=== PATIENT | female | born 1985 | race Caucasian/White ===

== ENCOUNTER → 2017-01-18 | Outpatient (CLI) | payer BC ==
[~2017-01-18] MED LIST: PRENTAB26 PO
== END | disposition home or self-care (01) ==
LOC: C.PAPS 10:13
PROVIDERS: ATTEND Obstetrics & Gynecology
DX: Z01.419 Encounter for gynecological examination (general) (routine) without abnormal findings (principal)

== ENCOUNTER 2021-02-09 10:37 | Inpatient (IN) ==
[2021-02-09 11:58] LABS: Basophils # (auto) 0.04 K/uL (0-0.2); Basophils % (auto) 1.1 %; Hemoglobin 12.1 g/dL (12.0-16.0); Immature Granulocytes # (auto) 0.03 K/uL (0.00-0.02); Immature Granulocytes % (auto) 0.8 %; Lymphocytes # (auto) 0.62 K/uL (1.2-3.4); Lymphocytes % (auto) 16.8 %; Mean Corpuscular Hemoglobin 30.3 pg (25-34); Mean Corpuscular Hgb Conc 33.6 g/dL (32-36); Mean Corpuscular Volume 90.2 fL (80-100); Mean Platelet Volume 9.4 fL (7.4-10.4); Monocytes # (auto) 0.51 K/uL (0.11-0.59); Monocytes % (auto) 13.9 %; Neutrophils # (auto) 2.48 K/uL (1.4-6.5); Neutrophils % (auto) 67.4 %; Platelet Count 213 K/uL (130-400); RDW Coefficient of Variation 12.6 % (11.5-14.5); RDW Standard Deviation 42.1 fL (36.4-46.3); Red Blood Count 3.99 M/uL (4.2-5.4); White Blood Count 3.68 K/uL (4.8-10.8)
[2021-02-09 12:18] LABS: Partial Thromboplastin Ratio 0.9; Partial Thromboplastin Time 23.9 Seconds (21.0-31.0)
[2021-02-09 12:25] LABS: D Dimer 1660 ug/L FEU (0-500)
[2021-02-09] MEDS ORDERED: OPTIRAY 320 125ml IV ONE (12:28)
--- NOTE | 2021-02-09 12:29 | XRay Report ---
XR chest 1V portable HISTORY: Atypical Chest Pain COMPARISON: None. FINDINGS: Multifocal bilateral airspace opacities consistent with a viral pneumonia. This is most pro nounced within the mid to lower lung zones. No pneumothorax. The heart is mildly enlarged. There are low lung volumes with mild elevation the right hemidiaphragm. IMPRESSION: Multifocal bilateral airspace opacities consistent with a viral pneumonia. ACT 112: Negative or not required by law. Electronically signed by: Ariel Shaikh M.D. 02/09/2021 12:27 PM
[2021-02-09 12:36] LABS: Alanine Aminotransferase 37 U/L (12-78); Albumin Level 2.6 gm/dl (3.4-5.0); Aspartate Aminotransferase 52 U/L (15-37); BUN Creatinine Ratio 12.9 (10-20); Blood Urea Nitrogen 9 mg/dl (7-18); Carbon Dioxide 27 mmol/L (21-32); Chloride 103 mmol/L (98-107); Creatinine Clr Calc Pharmacy 109.3 ml/min; Est GFR (African American) 130.8 ml/min; Est GFR (Non-African American) 112.9 ml/min; Glucose 91 mg/dl (70-99); Lipase 477 U/L (73-393); Sodium 139 mmol/L (136-145)
[2021-02-09 12:41] LABS: Albumin Globulin Ratio 0.5 (0.9-2); Alkaline Phosphatase 35 U/L (45-117); Bilirubin,Total 0.4 mg/dl (0.2-1); Globulin 5.1 gm/dl (2.5-4.0); Total Protein 7.7 gm/dl (6.4-8.2); Troponin I < 0.015 ng/ml (0-0.045)
--- NOTE | 2021-02-09 12:55 | CT Scan Report ---
CHEST CTA for PULMONARY ARTERIES CT DOSE: 265.20 mGy.cm HISTORY: Shortness of breath. TECHNIQUE: Multiaxial CT images of the chest were performed following the intravenous administration of contrast to evaluate the pulmonary arteries. Maximal intensity projection images were also obtaine d. A dose lowering technique was utilized adhering to the principles of ALARA. COMPARISON STUDY: None. FINDINGS: Limited views of the upper abdomen demonstrate a normal liver, spleen, and adrenal glands. Normal esophagus. The thyroid gland enhances normally. Mild mediastinal and bilateral hilar lymphaden opathy. This is likely reactive. No pleural or pericardial effusions. The heart is normal in size. No rmal caliber thoracic aorta with no evidence for dissection. No definite filling defects within the p ulmonary arteries to suggest a pulmonary embolus. Heterogeneous opacification of a few the left lower lobe segmental/subsegmental pulmonary arteries is likely due to the motion artifact. No fractures wi thin the visualized osseous structures. The central airways are patent. No pneumothorax. Multifocal g roundglass and consolidative airspace opacities most pronounced within the mid to lower lung zones co nsistent with a viral pneumonia. IMPRESSION: 1. No evidence for pulmonary embolus. 2. Moderate multifocal pneumonia likely secondary to a viral process. ACT 112: Negative or not required by law. Electronically signed by: Ariel Shaikh M.D. 02/09/2021 12:54 PM
[2021-02-09] MEDS ORDERED: dexAMETHasone**PF** 10 MG/ML VIAL IV ONE (14:07)
--- NOTE | 2021-02-09 15:12 | Emergency Department Note ---
Impression & Plan Pneumonia due to 2019 novel coronavirus, Hypoxia, Cough, Shortness of breath ED Provider Note NAME: ALVINA FORRESTER AGE: 35 SEX: F : 1985 ARRIVES VIA: Ambulance INFORMANT: Patient ED PROVIDER(S): Oni Cotter DO CHIEF COMPLAINT: Shortness of breath HPI: Patient is a 35-year-old female who presents ER for shortness of breath. Her symptoms initially started about 7 to 8 days ago. She admits to initially chills, cough shortness of breath. She did have loss of taste and smell but that has improved. The shortness of breath has been worsening significantly over the past 24 hours. Denies any belly pain nausea vomiting or diarrhea. No dysuria urgency or frequency. No other exacerbating or remitting factors. She has been followed up and is currently using an albuterol with no significant improvement. She is not vaccinated. ROS: See above HPI for pertinent positives & negatives. A total of 10 systems reviewed and were otherwise negative. PAST MEDICAL HISTORY:See Below PAST SURGICAL HISTORY:See Below FAMILY HISTORY:See Below SOCIAL HISTORY:See Below HOME MEDICATIONS:See Below ALLERGIES:See Below VITALS:See Below PHYSICAL EXAMINATION: GENERAL: Sitting up in bed, alert, slightly ill-appearing, disheveled, persistent cough EYE EXAM: normal conjunctiva. PERRL and EOM's grossly intact. OROPHARYNX: no exudate, no erythema, lips, buccal mucosa, and tongue normal and mucous membranes are dry NECK: supple, no nuchal rigidity, no adenopathy, non-tender LUNGS: Clear to auscultation. Normal chest wall mechanics HEART: no murmurs, S1 normal and S2 normal ABDOMEN: abdomen soft, non-tender, normo-active bowel sounds, no masses, no rebound or guarding. UPPER EXTREMITIES: upper extremities are grossly normal. LOWER EXTREMITIES: No pitting edema. Calves are equal bilateral NEURO EXAM: Normal sensorium, cranial nerves II-XII grossly intact, normal speech, no gross weakness of arms, no gross weakness of legs. MEDICAL DECISION MAKING: Patient is a 35-year-old female who is Covid positive the presents the ER for above-stated complaint. IV was established blood work obtained. Labs show mild leukopenia at 3.6 thousand. No significant anemia. D-dimer was elevated at 1600. BMP along with LFTs bilirubin troponin was unremarkable. Lipase slightly elevated at 470. Pro-Checo normal. Chest x-ray with bilateral infiltrates. CT angio of the chest shows no PEs was performed secondary to the elevated dimer. Patient was given IV Decadron. She was updated bedside. She ambulated and dropped her pulse ox to 85%. Discussed with Dr. Raj Heaton for further evaluation. Triage Nursing notes reviewed. Limited review of prior medical records performed Vital Signs: reviewed and remarkable for hypoxia Differential diagnosis: Differential diagnoses includes but is not limited to pneumonia, bronchitis, COPD/Asthma exacerbation, pneumothorax, pulmonary embolism, congestive heart failure, acute coronary syndrome ER treatment provided: See below Diagnostics interpreted by me: ECG: Sinus rhythm rate of 65 Normal axis T wave inversions in the inferior leads with ST depressions QTC 440 Cardiac Monitoring: An order was placed for continuous cardiac monitoring. The monitor shows a rate of 62 with sinus rhythm. Laboratory studies: As stated above and show below. Imaging studies: Portable AP upright 1 view of the chest shows bilateral infiltrates CT angio chest shows no PEs but multiple bilateral infiltrates Consultation(s): D/w Dr. Raj Heaton for further evaluation Procedures: none Critical Care: None Past Med/Surg History Surgical History History of tonsillectomy History of wisdom tooth extraction Family History Grandfather (Maternal) Lymphoma Denies family history of Ovarian cancer Breast cancer Colorectal cancer Social History Smoking Status: Never smoker Hx Alcohol Use: Yes Hx Substance Use: No Feels Safe at Home: Yes Allergies Allergies Allergy/AdvReac Type Severity Reaction Status Date / Time naproxen Allergy Unknown Verified 02/09/21 14:34 Home Meds Home Medications Medication Instructions Recorded Confirmed albuterol sulfate 90 mcg/actuation 1 - 2 puff INHALATION Q4H PRN 02/09/21 02/09/21 aerosol inhaler (Ventolin HFA) dextromethorphan-guaifenesin ER 60 1 tab PO Q12H 02/09/21 02/09/21 mg-1,200 mg tab,extend release,12hr (Mucinex DM) Results & Data (ED) Vital Signs Vital Signs - 24 hr 10/03/21 11:00 02/09/21 11:03 02/09/21 11:30 Temperature 37.3 C Temperature Source Oral Pulse Rate 63 67 66 Pulse Rate from SpO2 Sensor 64 67 Pulse Rhythm Regular Pulse Strength Normal Respiratory Rate 28 H 20 20 Respiratory Effort / Characteristics Non-Labored Respiratory Depth Normal Respiratory Pattern Regular Blood Pressure 114/78 114/78 123/87 Blood Pressure Mean 90 90 99 Blood Pressure Position Lying Pulse Oximetry 98 96 94 Oxygen Delivery Method Nasal Cannula Oxygen Flow Rate 2 Sepsis Recent Fever Within 48 Hours Yes Sepsis New/Unexplained Change in Mental Status No Sepsis Action Taken by Nursing No Action Required 02/09/21 12:02 02/09/21 12:10 02/09/21 12:20 Temperature Temperature Source Pulse Rate 61 61 68 Pulse Rate from SpO2 Sensor 61 62 68 Pulse Rhythm Pulse Strength Respiratory Rate 27 H 29 H Respiratory Effort / Characteristics Respiratory Depth Respiratory Pattern Blood Pressure Blood Pressure Mean Blood Pressure Position Pulse Oximetry 94 94 94 Oxygen Delivery Method Oxygen Flow Rate Sepsis Recent Fever Within 48 Hours Sepsis New/Unexplained Change in Mental Status Sepsis Action Taken by Nursing 02/09/21 12:30 02/09/21 12:50 02/09/21 13:00 Temperature Temperature Source Pulse Rate 66 67 62 Pulse Rate from SpO2 Sensor 67 66 62 Pulse Rhythm Pulse Strength Respiratory Rate 26 H 24 28 H Respiratory Effort / Characteristics Respiratory Depth Respiratory Pattern Blood Pressure 131/91 Blood Pressure Mean 104 Blood Pressure Position Pulse Oximetry 94 95 95 Oxygen Delivery Method Oxygen Flow Rate Sepsis Recent Fever Within 48 Hours Sepsis New/Unexplained Change in Mental Status Sepsis Action Taken by Nursing 02/09/21 13:10 02/09/21 13:20 02/09/21 13:30 Temperature Temperature Source Pulse Rate 60 59 L 59 L Pulse Rate from SpO2 Sensor 59 L 60 58 L Pulse Rhythm Pulse Strength Respiratory Rate 24 24 25 H Respiratory Effort / Characteristics Respiratory Depth Respiratory Pattern Blood Pressure Blood Pressure Mean Blood Pressure Position Pulse Oximetry 96 95 95 Oxygen Delivery Method Oxygen Flow Rate Sepsis Recent Fever Within 48 Hours Sepsis New/Unexplained Change in Mental Status Sepsis Action Taken by Nursing 02/09/21 13:40 02/09/21 13:49 02/09/21 13:50 Temperature Temperature Source Pulse Rate 56 L 67 Pulse Rate from SpO2 Sensor 56 L 68 Pulse Rhythm Pulse Strength Respiratory Rate 26 H 29 H Respiratory Effort / Characteristics Respiratory Depth Respiratory Pattern Blood Pressure Blood Pressure Mean Blood Pressure Position Pulse Oximetry 94 85 L 92 Oxygen Delivery Method Room Air Oxygen Flow Rate Sepsis Recent Fever Within 48 Hours Sepsis New/Unexplained Change in Mental Status Sepsis Action Taken by Nursing 02/09/21 14:00 02/09/21 14:10 Temperature Temperature Source Pulse Rate 62 66 Pulse Rate from SpO2 Sensor 65 66 Pulse Rhythm Pulse Strength Respiratory Rate 31 H 31 H Respiratory Effort / Characteristics Respiratory Depth Respiratory Pattern Blood Pressure Blood Pressure Mean Blood Pressure Position Pulse Oximetry 96 95 Oxygen Delivery Method Oxygen Flow Rate Sepsis Recent Fever Within 48 Hours Sepsis New/Unexplained Change in Mental Status Sepsis Action Taken by Nursing Laboratory Data Result diagrams: 02/09/21 11:50 02/09/21 11:50 Lab Results 02/09/21 02/09/21 02/09/21 Range/Units 11:50 11:50 11:50 WBC 3.68 L (4.8-10.8) K/uL RBC 3.99 L (4.2-5.4) M/uL Hgb 12.1 (12.0-16.0) g/dL Hct 36.0 L (37-47) % MCV 90.2 (80-100) fL MCH 30.3 (25-34) pg MCHC 33.6 (32-36) g/dL RDW Std Deviation 42.1 (36.4-46.3) fL RDW Coeff of Amie 12.6 (11.5-14.5) % Plt Count 213 (130-400) K/uL MPV 9.4 (7.4-10.4) fL Immature Gran % (Auto) 0.8 % Neut % (Auto) 67.4 % Lymph % (Auto) 16.8 % [place] % (Auto) 13.9 % Eos % (Auto) 0.0 % Baso % (Auto) 1.1 % Neut # (Auto) 2.48 (1.4-6.5) K/uL Lymph # (Auto) 0.62 L (1.2-3.4) K/uL [place] # (Auto) 0.51 (0.11-0.59) K/uL Eos # (Auto) 0.00 (0-0.5) K/uL Baso # (Auto) 0.04 (0-0.2) K/uL Immature Gran # (Auto) 0.03 H (0.00-0.02) K/uL APTT 23.9 (21.0-31.0) Seconds PTT Ratio 0.9 D-Dimer 1660 H* (0-500) ug/L FEU Sodium 139 (136-145) mmol/L Potassium 4.0 (3.5-5.1) mmol/L Chloride 103 (98-107) mmol/L Carbon Dioxide 27 (21-32) mmol/L Anion Gap 9.0 (3-11) BUN 9 (7-18) mg/dl Creatinine 0.66 (0.6-1.2) mg/dl Est Cr Clr Drug Dosing 109.3 ml/min Est GFR ( Amer) 130.8 ml/min Est GFR (Non-Af Amer) 112.9 ml/min BUN/Creatinine Ratio 12.9 (10-20) Glucose 91 (70-99) mg/dl Calcium 9.0 (8.5-10.1) mg/dl Total Bilirubin 0.4 (0.2-1) mg/dl AST 52 H (15-37) U/L ALT 37 (12-78) U/L Alkaline Phosphatase 35 L (45-117) U/L Troponin I < 0.015 (0-0.045) ng/ml C-Reactive Protein (0-0.29) mg/dl Total Protein 7.7 (6.4-8.2) gm/dl Albumin 2.6 L (3.4-5.0) gm/dl Globulin 5.1 H (2.5-4.0) gm/dl Albumin/Globulin Ratio 0.5 L (0.9-2) Lipase 477 H (73-393) U/L Procalcitonin (0-0.5) ng/ml 02/09/21 02/09/21 Range/Units 11:50 11:50 WBC (4.8-10.8) K/uL RBC (4.2-5.4) M/uL Hgb (12.0-16.0) g/dL Hct (37-47) % MCV (80-100) fL MCH (25-34) pg MCHC (32-36) g/dL RDW Std Deviation (36.4-46.3) fL RDW Coeff of Amie (11.5-14.5) % Plt Count (130-400) K/uL MPV (7.4-10.4) fL Immature Gran % (Auto) % Neut % (Auto) % Lymph % (Auto) % [place] % (Auto) % Eos % (Auto) % Baso % (Auto) % Neut # (Auto) (1.4-6.5) K/uL Lymph # (Auto) (1.2-3.4) K/uL [place] # (Auto) (0.11-0.59) K/uL Eos # (Auto) (0-0.5) K/uL Baso # (Auto) (0-0.2) K/uL Immature Gran # (Auto) (0.00-0.02) K/uL APTT (21.0-31.0) Seconds PTT Ratio D-Dimer (0-500) ug/L FEU Sodium (136-145) mmol/L Potassium (3.5-5.1) mmol/L Chloride (98-107) mmol/L Carbon Dioxide (21-32) mmol/L Anion Gap (3-11) BUN (7-18) mg/dl Creatinine (0.6-1.2) mg/dl Est Cr Clr Drug Dosing ml/min Est GFR ( Amer) ml/min Est GFR (Non-Af Amer) ml/min BUN/Creatinine Ratio (10-20) Glucose (70-99) mg/dl Calcium (8.5-10.1) mg/dl Total Bilirubin (0.2-1) mg/dl AST (15-37) U/L ALT (12-78) U/L Alkaline Phosphatase (45-117) U/L Troponin I (0-0.045) ng/ml C-Reactive Protein 10.20 H (0-0.29) mg/dl Total Protein (6.4-8.2) gm/dl Albumin (3.4-5.0) gm/dl Globulin (2.5-4.0) gm/dl Albumin/Globulin Ratio (0.9-2) Lipase (73-393) U/L Procalcitonin < 0.05 (0-0.5) ng/ml Administered Medications Discontinued Medications Dexamethasone Sodium Phosphate (DexamethasonePf 10 Mg/Ml Vial) 8 mg IV NOW ONE Stop: 02/09/21 14:08 Last Admin: 02/09/21 14:32 Dose: 8 mg Documented by: [id number] Ioversol (Optiray 320 125ml) 118 ml IV ONCE ONE Stop: 02/09/21 12:29 Last Admin: 02/09/21 12:29 Dose: 118 ml Documented by: [id number] Imaging Data Radiologist's Impression: Chest X-Ray 02/09/21 11:14 XR chest 1V portable HISTORY: Atypical Chest Pain COMPARISON: None. FINDINGS: Multifocal bilateral airspace opacities consistent with a viral pneumonia. This is most pronounced within the mid to lower lung zones. No pneumothorax. The heart is mildly enlarged. There are low lung volumes with mild elevation the right hemidiaphragm. IMPRESSION: Multifocal bilateral airspace opacities consistent with a viral pneumonia. ACT 112: Negative or not required by law. Electronically signed by: Ariel Shaikh M.D. 02/09/2021 12:27 PM Chest CTA 02/09/21 12:25 CHEST CTA for PULMONARY ARTERIES CT DOSE: 265.20 mGy.cm HISTORY: Shortness of breath. TECHNIQUE: Multiaxial CT images of the chest were performed following the intravenous administration of contrast to evaluate the pulmonary arteries. Maximal intensity projection images were also obtained. A dose lowering technique was utilized adhering to the principles of ALARA. COMPARISON STUDY: None. FINDINGS: Limited views of the upper abdomen demonstrate a normal liver, spleen, and adrenal glands. Normal esophagus. The thyroid gland enhances normally. Mild mediastinal and bilateral hilar lymphadenopathy. This is likely reactive. No pleural or pericardial effusions. The heart is normal in size. Normal caliber thoracic aorta with no evidence for dissection. No definite filling defects within the pulmonary arteries to suggest a pulmonary embolus. Heterogeneous opacification of a few the left lower lobe segmental/subsegmental pulmonary arteries is likely due to the motion artifact. No fractures within the visualized osseous structures. The central airways are patent. No pneumothorax. Multifocal groundglass and consolidative airspace opacities most pronounced within the mid to lower lung zones consistent with a viral pneumonia. IMPRESSION: 1. No evidence for pulmonary embolus. 2. Moderate multifocal pneumonia likely secondary to a viral process. ACT 112: Negative or not required by law. Electronically signed by: Ariel Shaikh M.D. 02/09/2021 12:54 PM Discharge Plan Visit Data Chief Complaint: Illness Stated Complaint: SOB, COVID + ED Provider: Oni Cotter Discharge Problem: Pneumonia due to 2019 novel coronavirus, Hypoxia, Cough, Shortness of breath Forms Stand Alone Forms: My [facility] Prescriptions Prescriptions: No Action dextromethorphan-guaifenesin [Mucinex DM] 60-1,200 mg Tablet Extended Release 12 Hr 1 tab PO Q12H RF: 0 albuterol sulfate [Ventolin HFA] 90 mcg/actuation HFA aerosol inhaler 1 - 2 puff INHALATION Q4H PRN (Reason: Cough) RF: 0 Referrals Referrals: Fela Pace DO [Primary Care Provider] -
--- NOTE | 2021-02-09 15:38 | History & Physical Report ---
Date of Service February 09, 2021 Assessment & Plan (1) Pneumonia due to 2019 novel coronavirus: Plan: Dexamethasone 6mg IV daily Day 13 of illness therefore remdesivir deferred Lovenox 40mg SQ BID Encourage proning Aim O2 sats > 94% (2) Hypoxia: Plan: Borderline at rest. Mainly on minimal exertion. Will probably need 2 step prior to discharge. Plan: VTE Prophylaxis - Lovenox 40mg SQ BID Diet - Regular Disposition - admit to med/surg, COVID cash Admission and Anticipated Discharge Date Admission Date: February 09, 2021 History of Present Illness Chief Complaint: COVID-19 symptoms Primary Care Provider: Fela Pace DO Dilcia Pantoja is a 35 year old female who presents to the ER with shortness of breath. Symptoms started on January 28, on day 13 on admission. She is not vaccinated, was planning to get one soon. Symptoms started with fever and chills. Loss of taste and smell has been coming back. Now with fatigue, shortness of breath on exertion, non-productive cough, chest pain on coughing and reduced appetite. She denies any abdominal pain, nausea diarrhea. Not recevied any treatment prior to today. In the ER CXR was consistent with multifocal pneumonia. SARS-COV-2 PCR positive. She was given 6mg IV dexamethasone in the ER due to borderline hypoxia at rest but significantly desaturated to 85% on minimal exertion. She was referred to medicine for admission and ongoing management of COVID-19 and hypoxia. Allergies Allergy/AdvReac Type Severity Reaction Status Date / Time naproxen Allergy Unknown Verified 02/09/21 14:34 Home Medications Medication Instructions Recorded Confirmed Type albuterol sulfate 90 mcg/actuation 1 - 2 puff INHALATION Q4H PRN 02/09/21 02/09/21 History aerosol inhaler (Ventolin HFA) dextromethorphan-guaifenesin ER 60 1 tab PO Q12H 02/09/21 02/09/21 History mg-1,200 mg tab,extend release,12hr (Mucinex DM) Past Med/Surg History Surgical History History of tonsillectomy History of wisdom tooth extraction Family History Grandfather (Maternal) Lymphoma Denies family history of Ovarian cancer Breast cancer Colorectal cancer Social History Smoking Status: Never smoker Second Hand Exposure: No; Do You Dip or Chew Tobacco: No; Tobacco Cessation Education Requested by Patient: No Hx Alcohol Use: Yes Alcohol type: wine Hx Substance Use: No Preferred Language: Chinese Communication Ability: Effective Occupational Therapist Assistant Required: No Beliefs That Will Affect Care: None Current Living Situation: Family Other Information That Helps Us Care for You: No Feels Safe at Home: Yes Safety Concerns: Feels Safe At This Time Assistive Devices: Contacts and Glasses Review of Systems Review of Systems: All systems reviewed & are unremarkable except as noted in HPI & below Physical Exam Constitutional: WD/WN, vitals as above Eyes: + anicteric sclerae; normal pupil size ENMT: external ear and nose normal, oropharynx normal Neck: trachea midline, no thyromegaly Respiratory: normal respiratory effort; no respiratory distress Auscultation: + diminished lung sounds (poor inspiratory effort due to coughing) and + crackles (thourghout); no wheezes Cardiovascular: RRR, no murmur, no edema Gastrointestinal (Abdomen): normal bowel sounds, soft, nontender, no hepatosplenomegaly Musculoskeletal: no cyanosis or clubbing, extremities motor strength 5/5 Skin: no rashes, warm and dry Neurologic: moves all extremities and awake; not confused Psychiatric: A+Ox3, euthymic affect Results & Data Results & Data ([facility]) Vital Signs (Past 12 Hours) Vital Signs Temp Pulse Resp BP Pulse Ox 02/09/21 14:10 66 31 H 95 02/09/21 14:00 62 31 H 96 02/09/21 13:50 67 29 H 92 02/09/21 13:49 85 L 02/09/21 13:40 56 L 26 H 94 02/09/21 13:30 59 L 25 H 95 02/09/21 13:20 59 L 24 95 02/09/21 13:10 60 24 96 02/09/21 13:00 62 28 H 131/91 95 02/09/21 12:50 67 24 95 02/09/21 12:30 66 26 H 94 02/09/21 12:20 68 29 H 94 02/09/21 12:10 61 27 H 94 02/09/21 12:02 61 94 02/09/21 11:30 66 20 123/87 94 02/09/21 11:03 37.3 C 67 20 114/78 96 02/09/21 11:00 63 28 H 114/78 98 Diagnostic Findings XR chest 1V portable HISTORY: Atypical Chest Pain COMPARISON: None. FINDINGS: Multifocal bilateral airspace opacities consistent with a viral pneumonia. This is most pronounced within the mid to lower lung zones. No pneumothorax. The heart is mildly enlarged. There are low lung volumes with mild elevation the right hemidiaphragm. IMPRESSION: Multifocal bilateral airspace opacities consistent with a viral pneumonia. CHEST CTA for PULMONARY ARTERIES CT DOSE: 265.20 mGy.cm HISTORY: Shortness of breath. TECHNIQUE: Multiaxial CT images of the chest were performed following the intravenous administration of contrast to evaluate the pulmonary arteries. Maximal intensity projection images were also obtained. A dose lowering technique was utilized adhering to the principles of ALARA. COMPARISON STUDY: None. FINDINGS: Limited views of the upper abdomen demonstrate a normal liver, spleen, and adrenal glands. Normal esophagus. The thyroid gland enhances normally. Mild mediastinal and bilateral hilar lymphadenopathy. This is likely reactive. No pl eural or pericardial effusions. The heart is normal in size. Normal caliber thoracic aorta with no evidence for dissection. No definite filling defects within the pulmonary arteries to suggest a pulmonary embolus. Heterogeneous opacification of a few the left lower lobe segmental/subsegmental pulmonary arteries is likely due to the motion artifact. No fractures within the visualized osseous structures. The central airways are patent. No pneumothorax. Multifocal groundglass and consolidative airspace opacities most pronounced within the mid to lower lung zones consistent with a viral pneumonia. IMPRESSION: 1. No evidence for pulmonary embolus. 2. Moderate multifocal pneumonia likely secondary to a viral process. Medications Administered ER Medications Given: Dexamethasone 8mg IV ECG Indication: SOB/dyspnea Rate (beats per minute): 65 Rhythm: normal sinus Findings: + other (Non specific T wave abnormality) Comparison ECG Date: no prior available Code Status & VTE Plan Code Status Full VTE Prophylaxis Plan VTE Prophylaxis will be ordered: Yes PG Care Time/CCT Total # of Minutes Spent Total Time Spent with Patient: Total time spent is greater than 50% in coordination of care (as documented) at patient's floor/unit and/or counseling patient: Coding Level of Care Code 53136 Initial Inpt Care Lvl 2 Diagnoses Pneumonia due to 2019 novel coronavirus U07.1; J12.82 Hypoxia R09.02
[2021-02-09] MEDS ORDERED: ACETAMINOPHEN 325 MG TAB PO PRN (19:50)
[2021-02-09] MEDS ORDERED: POLYETHYLENE (MIRALAX) 17 GM PACK PO PRN (19:50)
--- NOTE | 2021-02-09 20:01 | Electrocardiogram Report ---
Test Reason : Blood Pressure : / mmHG Vent. Rate : 065 BPM Atrial Rate : 065 BPM P-R Int : 166 ms QRS Dur : 086 ms QT Int : 424 ms P-R-T Axes : 030 -02 -12 degrees QTc Int : 440 ms Normal sinus rhythm Nonspecific T wave abnormality Abnormal ECG No previous ECGs available Confirmed by Cassius Lopez ([id number]) on 02/09/2021 8:01:30 PM Referred By: REFERRED SELF Confirmed By:Cassius Lopez
[2021-02-09] MEDS ORDERED: DEXTROMETHORPHAN POLYMR COMPLX 30 MG/5 ML UDP PO PRN (20:40)
[2021-02-09] MEDS ORDERED: ENOXAPARIN INJ 40 MG/0.4 ML SYR SQ SCH (21:00)
[2021-02-09] MEDS: guaiFENesin 600 MG TABCR PO SCH (21:55)
[2021-02-09] MEDS: ENOXAPARIN INJ 40 MG/0.4 ML SYR SQ SCH (21:55)
[2021-02-10 06:50] LABS: Hematocrit (blood only) 36.5 % (37-47); Hemoglobin 12.4 g/dL (12.0-16.0); Mean Corpuscular Hemoglobin 30.3 pg (25-34); Mean Corpuscular Volume 89.2 fL (80-100); Platelet Count 268 K/uL (130-400); RDW Coefficient of Variation 12.6 % (11.5-14.5); RDW Standard Deviation 41.1 fL (36.4-46.3); Red Blood Count 4.09 M/uL (4.2-5.4); White Blood Count 2.29 K/uL (4.8-10.8)
[2021-02-10 07:11] LABS: Basophils # (auto) 0.03 K/uL (0-0.2); Basophils % (auto) 1.3 %; Immature Granulocytes # (auto) 0.03 K/uL (0.00-0.02); Immature Granulocytes % (auto) 1.3 %; Lymphocytes # (auto) 0.63 K/uL (1.2-3.4); Lymphocytes % (auto) 27.5 %; Monocytes # (auto) 0.28 K/uL (0.11-0.59); Monocytes % (auto) 12.2 %; Neutrophils # (auto) 1.32 K/uL (1.4-6.5); Neutrophils % (auto) 57.7 %; Platelet Estimate CAC (Normal)
[2021-02-10 07:13] LABS: Albumin Level 2.5 gm/dl (3.4-5.0); BUN Creatinine Ratio 27.3 (10-20); C Reactive Protein 8.71 mg/dl (0-0.29); Calcium 9.3 mg/dl (8.5-10.1); Creatinine Clr Calc Pharmacy 132.8 ml/min; Est GFR (African American) 140.6 ml/min; Est GFR (Non-African American) 121.3 ml/min; Potassium 4.2 mmol/L (3.5-5.1)
[2021-02-10 07:16] LABS: Albumin Globulin Ratio 0.5 (0.9-2); Bilirubin,Total 0.4 mg/dl (0.2-1); Globulin 5.3 gm/dl (2.5-4.0); Total Protein 7.8 gm/dl (6.4-8.2)
[2021-02-10] MEDS: ENOXAPARIN INJ 40 MG/0.4 ML SYR SQ SCH ×2 (10:35→22:01)
[2021-02-10] MEDS: guaiFENesin 600 MG TABCR PO SCH ×2 (10:35→22:00)
[2021-02-10] MEDS: dexAMETHasone 6 MG in SYRINGE 0 ML IV SCH (10:38)
--- NOTE | 2021-02-10 22:53 | Hospitalist Progress Note ---
Date of Service February 10, 2021 Assessment & Plan (1) Pneumonia due to 2019 novel coronavirus: Plan: Thus far stable although she does have hypoxia with walking. has extensive pneumonia on CT scan and diffuse rales on examination. she is about 2 weeks into her illness. inflammatory markers are high - I am hopeful, however, that she does not worsen. day #2 of dexamethasone - continue for up to 10 days. proning discussed, handout given. incentive yonis. flutter valve. lovenox 40 BID for DVT proph. mucinex. melatonin to help w/ sleep. watch overnight due to potential for worsening and hypoxia w/ ambulation. (2) Hypoxia: Plan: see above if she d/c home tomorrow willl need formal 2-step Plan: VTE Prophylaxis - Lovenox 40mg SQ BID leukopenia - bone marrow suppression from COVID-19 repeat cbc am updated pt's extensively by phone this evening Admission and Anticipated Discharge Date Admission Date: February 09, 2021 Subjective patient states she "feels much better" relative to yesterday still w/ cough and MÁRQUEZ but no dyspnea at rest mild chest tightness - central - with coughing eating better no fevers we discussed proning - she had not done so simply because no one had talked to her about it, but she will try using incentive yonis Review of Systems Review of Systems: gen - no fevers/chills; +fatigue CV - no palpitations, no orthopnea pulm - no hemoptysis or dyspnea at rest GI - no nausea/emesis/abd pain Physical Exam Physical Exam: gen - nontoxic, NAD, no increased work of breathing; I walked her in the room - o2 sats dropped to <88% in room air w/ such mouth - MMM neck - no JVD heart - RRR, s1 s2 lungs - diffuse dry rales b/l, extending 1/2 way up back; also heard dry rales anteriorly abd - soft NT ND BS+; no HSM ext - no edema psych - a/o x 3 Results & Data Results & Data ([facility]) Vital Signs (Past 12 Hours) Vital Signs Temp Pulse Resp BP BP Pulse Ox 02/10/21 22:08 36.5 C 52 L 20 114/78 94 02/10/21 15:58 36.6 C 66 16 108/70 93 Laboratory Results Laboratory Results - last 24 hr 02/10/21 02/10/21 06:17 06:17 WBC 2.29 L RBC 4.09 L Hgb 12.4 Hct 36.5 L MCV 89.2 MCH 30.3 MCHC 34.0 RDW Std Deviation 41.1 RDW Coeff of Amie 12.6 Plt Count 268 MPV 10.0 Immature Gran % (Auto) 1.3 Neut % (Auto) 57.7 Lymph % (Auto) 27.5 Sanborn % (Auto) 12.2 Eos % (Auto) 0.0 Baso % (Auto) 1.3 Neut # (Auto) 1.32 L Lymph # (Auto) 0.63 L Sanborn # (Auto) 0.28 Eos # (Auto) 0.00 Baso # (Auto) 0.03 Immature Gran # (Auto) 0.03 H Platelet Estimate CAC Sodium 137 Potassium 4.2 Chloride 104 Carbon Dioxide 25 Anion Gap 8.0 BUN 15 D Creatinine 0.53 L Est Cr Clr Drug Dosing 132.8 Est GFR ( Amer) 140.6 Est GFR (Non-Af Amer) 121.3 BUN/Creatinine Ratio 27.3 H Glucose 116 H Calcium 9.3 Total Bilirubin 0.4 AST 36 ALT 37 Alkaline Phosphatase 33 L C-Reactive Protein 8.71 H Total Protein 7.8 Albumin 2.5 L Globulin 5.3 H Albumin/Globulin Ratio 0.5 L PG Care Time/CCT Total # of Minutes Spent Total Time Spent with Patient: Total time spent is greater than 50% in coordination of care (as documented) at patient's floor/unit and/or counseling patient: Coding Level of Care Code 38666 Subseq Hosp Care Lvl 2 Diagnoses Pneumonia due to 2019 novel coronavirus U07.1; J12.82 Hypoxia R09.02
[2021-02-10] MEDS ORDERED: MELATONIN 3 MG TAB PO PRN (22:56)
[2021-02-11] MEDS: guaiFENesin 600 MG TABCR PO SCH (07:53)
[2021-02-11] MEDS: ENOXAPARIN INJ 40 MG/0.4 ML SYR SQ SCH (07:54)
[2021-02-11] MEDS: dexAMETHasone 6 MG in SYRINGE 0 ML IV SCH (07:55)
[2021-02-11 08:30] LABS: Hematocrit (blood only) 36.7 % (37-47); Hemoglobin 12.3 g/dL (12.0-16.0); Mean Corpuscular Hemoglobin 30.4 pg (25-34); Mean Corpuscular Hgb Conc 33.5 g/dL (32-36); Mean Corpuscular Volume 90.8 fL (80-100); Mean Platelet Volume 9.9 fL (7.4-10.4); Platelet Count 321 K/uL (130-400); RDW Coefficient of Variation 12.5 % (11.5-14.5); RDW Standard Deviation 42.1 fL (36.4-46.3); Red Blood Count 4.04 M/uL (4.2-5.4); White Blood Count 6.91 K/uL (4.8-10.8)
[2021-02-11 09:04] LABS: BUN Creatinine Ratio 27.5 (10-20); C Reactive Protein 3.34 mg/dl (0-0.29); Calcium 9.4 mg/dl (8.5-10.1); Est GFR (African American) 132.1 ml/min; Magnesium 2.4 mg/dl (1.8-2.4); Potassium 4.5 mmol/L (3.5-5.1)
--- NOTE | 2021-02-11 15:55 | Discharge Summary ---
Date of Service date of admission - February 09, 2021 date of discharge - February 11, 2021 Admission HPI Per Admitting Provider Dilcia Pantoja is a 35 year old female who presents to the ER with shortness of breath. Symptoms started on January 28. Thus, she was on day 13 of her illness at time of admission. She is not vaccinated, was planning to get one soon. Symptoms started with fever and chills. Loss of taste and smell has been coming back. Now with fatigue, shortness of breath on exertion, non-productive cough, chest pain on coughing and reduced appetite. She denies any abdominal pain, nausea diarrhea. Not received any treatment prior to today. In the ER CXR was consistent with multifocal pneumonia. SARS-COV-2 PCR positive. She was given 6mg IV dexamethasone in the ER due to borderline hypoxia at rest but significantly desaturated to 85% on minimal exertion. She was referred to medicine for admission and ongoing management of COVID-19 and hypoxia. Principal Diagnosis COVID-19 pneumonia Discharge Exam Gen: NAD, a/o x 3 ENT: MMM Neck: no JVD Heart: RRR, s1 s2, no murmur Lungs: bibasilar fine rales, about 1/3-1/[address] up back, no wheeze, no increased work of breathing Abd: soft, NT, ND, BS+, no HSM Ext: no edema, pulses 2+ b/l Discharge Data Allergies Allergy/AdvReac Type Severity Reaction Status Date / Time naproxen Allergy Unknown Verified 02/09/21 14:34 Procedures Performed 2-step ambulatory oxygen test - NO NEED for home O2 Ordered Studies Chest X-Ray 02/09/21 11:14 XR chest 1V portable HISTORY: Atypical Chest Pain COMPARISON: None. FINDINGS: Multifocal bilateral airspace opacities consistent with a viral pneumonia. This is most pronounced within the mid to lower lung zones. No pneumothorax. The heart is mildly enlarged. There are low lung volumes with mild elevation the right hemidiaphragm. IMPRESSION: Multifocal bilateral airspace opacities consistent with a viral pneumonia. ACT 112: Negative or not required by law. Electronically signed by: Ariel Shaikh M.D. 02/09/2021 12:27 PM Chest CTA 02/09/21 12:25 CHEST CTA for PULMONARY ARTERIES CT DOSE: 265.20 mGy.cm HISTORY: Shortness of breath. TECHNIQUE: Multiaxial CT images of the chest were performed following the intravenous administration of contrast to evaluate the pulmonary arteries. Maximal intensity projection images were also obtained. A dose lowering technique was utilized adhering to the principles of ALARA. COMPARISON STUDY: None. FINDINGS: Limited views of the upper abdomen demonstrate a normal liver, spleen, and adrenal glands. Normal esophagus. The thyroid gland enhances normally. Mild mediastinal and bilateral hilar lymphadenopathy. This is likely reactive. No pleural or pericardial effusions. The heart is normal in size. Normal caliber thoracic aorta with no evidence for dissection. No definite filling defects within the pulmonary arteries to suggest a pulmonary embolus. Heterogeneous opacification of a few the left lower lobe segmental/subsegmental pulmonary arteries is likely due to the motion artifact. No fractures within the visualized osseous structures. The central airways are patent. No pneumothorax. Multifocal groundglass and consolidative airspace opacities most pronounced within the mid to lower lung zones consistent with a viral pneumonia. IMPRESSION: 1. No evidence for pulmonary embolus. 2. Moderate multifocal pneumonia likely secondary to a viral process. ACT 112: Negative or not required by law. Electronically signed by: Ariel Shaikh M.D. 02/09/2021 12:54 PM Hospital Course (1) Pneumonia due to 2019 novel coronavirus: Had extensive pneumonia on CT scan and diffuse rales on examination during her stay. She had an O2 requirement in the early portion of her stay. This was weaned off prior to discharge. Despite high inflammatory markers (CRP 10, D-dimer 1660, etc) she made nice improvement while here. She received standard COVID-19 care including dexamethasone, pulmonary toilet, and supportive care. She was counseled about proning. At discharge she will take 7 days more of dexamethasone 6mg daily, PPI for GI prophylaxis, and a 30-day course of low-dose Xarelto for VTE prophylaxis (see below). Given the severity of her pneumonia on CTA chest I advised pulmonary referral post-discharge to follow her through recovery. (2) Hypoxia: Resolved prior to discharge. Passed 2-step oxygen test on day of discharge. (3) Leukopenia: Low WBC count at time of presentation. WBCs normalized prior to discharge. (4) DVT prophylaxis: Lovenox 40mg BID during the stay. At discharge recommended Xarelto 10mg once daily for 30 days for VTE prophylaxis given significant CRP elevation at admission (10), severity of her pneumonia (significant b/l pneumonia on exam and CT chest), and high d-dimer. Xarelto instructions were given. Total Time Total Time Spent Total Time Spent (In Minutes): 40 Discharge Plan Discharge Items Patient Disposition: Home - Self-Care Reason For Visit: COVID-19 Pneumonia Discharge Diagnosis: COVID-19 pneumonia - improving Activity: As commented below Activity Comment: gradually increase your activities over the next 7-10 days Bathing: No limitations Sexual Activity: Wait until after follow-up appointment Exercise/Sports: Wait until after follow-up appointment Driving/Machine Use: ok to resume driving once out of isolation Non-emergency contact: Primary Care Provider and Supervisor Customer Complaint Service Call non-emergency contact if: you have any medication questions, your symptoms worsen and you have a fever Follow-up/Referrals: [facility] [place] Pulmonology [Provider Group] (3-4 weeks; new patient visit - mod-severe COVID-19 pneumonia) Fela Gallardo DO [Primary Care Provider] - (NAHID AT DR GALLARDO'S OFFICE WANTS PATIENT CALL AND SET UP HER OWN HOSPITAL F/U DUE TO + COVID. ) Diet: Regular Addtl Attending Provider Instructions: Mrs Pantoja, Juan C were hospitalized at [facility] for moderate-severe COVID-19 pneumonia. You required oxygen for much of your stay. On day of discharge your oxygen levels both at rest and with activity have been acceptable and the oxygen has been weaned off. Fortunately you will not need oxygen at home. You improved during your hospitalization with steroids and supportive care. Recommendations - 1. dexamethasone steroid - * starting 02/12/21 take 6mg once daily for 7 additional days; take with food * the dexamethasone will reduce the inflammation in your lungs from the COVID-19 pneumonia 2. Xarelto blood thinner - * take 10mg once daily for 30 days starting 02/12/21 * see dedicated blood thinner instructions below 3. for cough/congestion - * ok to use gzvm-kal-dyzwlyy mucinex or mucinex-DM up to twice daily as needed/as desired * may use the albuterol inhaler 2 puffs as needed for cough/wheeze/congestion/shortness of breath 4. continue to prone ("tummy time") as much as possible over the next week or so 5. continue to use your flutter valve and incentive spirometer over the next week to 10 days 6. check your oxygen levels with your oximeter 2-3x's each day. If your oxygen levels are consistently over 90-92% these are acceptable readings. If you have oxygen levels less than 90% please seek medical attention. Your oxygen levels will gradually climb over time to the mid 90s and higher as your lungs heal. 7. stay well-hydrated 8. you are likely not contagious to others at this time as 10+ days have passed since the start of your illness, you have had no fever in several days, and you are improving. To be cautious you can take your isolation period out to ~20 days just to be on safe side given the severity of your illness. I would recommend spending this week at home recovering then gradually getting back to more normal activities as you get into Wednesday/Wednesday of this coming week. 9. it is important to listen to your body as you are recovering. You will likely be more tired than normal, have shortness of breath with too much activity, etc. It is ok to nap as needed, rest, and take it easy. Gradually return to your work over the next couple of weeks. 10. please take omeprazole acid rehab director, 40mg once daily every morning, for 30 days while taking the Xarelto, to help prevent stomach irritation from the Xarelto and the steroids. Follow-up - see separate section Return to [facility] if - * you have recurrent fevers over 100 degrees * you have worsening shortness of breath * you have chest pains * you have oxygen levels less than 90% on your pulse oximeter consistently * you have any concerns about bleeding because of your Xarelto * any other concerns Please continue to feel better and it was our pleasure caring for you at [facility]! -Dr Mimi Dhillontl Brine Room Laborer Provider Instructions: Blood Thinner Medication Instructions: It is now known that COVID-19 infection, particularly when severe, can "thicken" the blood and increase your chances of blood clots in the legs and lungs. Your blood thinner will be "Xarelto." Blood thinners/Anticoagulants will thin your blood to help prevent clots. The Xarelto will be 10mg once daily starting 02/12/21 for 30 days. You do not need to have your blood checked while on Xarelto, modify your diet, etc. * You should take her medication exactly as directed. * Never skip a dose. * Never take a double dose. If you miss a dose, take it as soon as you remember. Call your Primary Care doctor if you experience any of the following: * Swelling or Pain in your leg * Sudden, continuous pain deep in a muscle * Pain that worsens when you are active or when you stand still for a long time * Chest Pain * Sudden Shortness of Breath * Rapid or pounding heart beat * Fainting * Dizziness * Cough with blood or bloody sputum * Sweating more than normal * Bruises * Heavy or uncontrolled bleeding * Blood in your urine, stool or vomit * Black or tarry stools * Heavy menstrual bleeding * Heavy nose bleeding Pending Studies at Discharge: No Stand-Alone Forms: My [facility] [employer], Opioid Pain Management, Smoking Cessation Medications and DC Order Prescriptions: New Xarelto 10 mg tablet 10 mg PO DAILY 30 Days Qty: 30 RF: 0 dexamethasone 6 mg tablet 6 mg PO DAILY 7 Days Qty: 7 RF: 0 omeprazole 40 mg capsule,delayed release(DR/EC) 40 mg PO DAILY Qty: 30 RF: 0 Continued dextromethorphan-guaifenesin [Mucinex DM] 60-1,200 mg Tablet Extended Release 12 Hr 1 tab PO Q12H RF: 0 Changed albuterol sulfate [Ventolin HFA] 90 mcg/actuation HFA aerosol inhaler 2 puff INHALATION Q4H PRN (Reason: Cough) Qty: 1 RF: 0 Discharge Orders: Discharge Order (Routine); Ordered 02/11/21 Ordered By: Raj Onofre/Other Patient Handouts: Caring for Someone Who Has COVID-19, Disinfecting Your Home of COVID-19, 2019-nCoV, COVID-19 Prevention, COVID-19 Home Care, Proning COVID-19 Admission Data Admit Date/Time: 02/09/21 20:41 Attending Provider: Raj Le Admit Provider: Raj Heaton Primary Care Provider: Fela Gallardo Other Providers: Raj Heaton Other Interventions: Discharge Summary Assessment (RN) Last Done: 02/11/21 15:47 Coding Level of Care Code D/C DAY MANAGEMENT >30 MINS Diagnoses Pneumonia due to 2019 novel coronavirus U07.1; J12.82 Hypoxia R09.02 Leukopenia D72.819 DVT prophylaxis Z29.9
== END 2021-02-11 16:40 | disposition home or self-care (01) | DRG 177 ==
LOC: ED 10:37 → 3W 10:37 → SUATTDRO 20:41